=== PATIENT | male | born 1955 | race Two or more races ===

== ENCOUNTER 2018-06-28 07:06 | Day surgery (SDC) | payer OTHER ==
[~2018-06-28] VITALS: Ht 175.3 cm; Wt 79.4 kg
[2018-06-28] VITALS (11 sets, daily range): BP systolic 118–135; BP diastolic 68–84
[~2018-06-28 07:06] MED LIST: AMLODIPINE BESY10 MG ORAL; CRESTOR10 M2 ORAL; LOSARTAN POTASS50 MG ORAL; ceFAZolin 1gm IVPB IVPB ONE; celeBREX 200mg Cap **SURGERY PATIENTS ONLY ORAL ONE; oxyCONTIN 20mg tab ORAL ONE
[2018-06-28] MEDS ORDERED: Morphine Sulfate PF 0 ML ONE (08:04)
[2018-06-28] MEDS ORDERED: Kenalog-40 1ml Vial ONE (08:04)
[2018-06-28] MEDS ORDERED: Bupivacaine w/Epi 0.25% 30ml Vial INJ ONE (08:04)
[2018-06-28] MEDS ORDERED: Ketorolac 30mg Inj ONE ×2 (08:04→08:52)
[2018-06-28] MEDS ORDERED: Lidocaine 1% MPF 10mg/ml 5ml ONE (08:14)
[2018-06-28] MEDS ORDERED: Midazolam 2mg/2ml Inj ONE (08:14)
[2018-06-28] MEDS ORDERED: fentaNYL 100 mcg/2 mL IV ONE (08:14)
[2018-06-28] MEDS ORDERED: Propofol 200mg/20ml IV ONE (08:14)
[2018-06-28] MEDS ORDERED: EPINEPHrine 1mg/1ml Amp ONE (08:16)
[2018-06-28] MEDS ORDERED: LR 1000ml 1,000 ML IVLG SCH (08:25)
--- NOTE | 2018-06-28 08:25 | Anethesia Preoperative Eval ---
Anesthesia Pre-op PMH/ROS General Date of Evaluation: Jun 28, 2018 Anesthesiologist: Julien ASA Score: ASA 2 Mallampati Score Class I : Soft palate, uvula, fauces, pillars visible Class II: Soft palate, uvula, fauces visible Class III: Soft palate, base of uvula visible Class IV: Only hard plate visible Mallampati Classification: Class II Surgeon: Oj Diagnosis: LEft shoulder impingement Surgical Procedure: Left shouldeer arthroscopy Anesthesia History: none Family History: no anesthesia problems Allergies: Coded Allergies: No Known Allergies (Unverified , 06/28/18) Medications: see eMAR Patient NPO?: Yes NPO Date: Jun 27, 2018 NPO Time: 22:00 Past Medical History Cardiovascular: Reports: HTN, other - HLD; Denies: CAD, SC, valve dz, arrhythmia Pulmonary: Denies: asthma, COPD, LAXMI, other Gastrointestinal/Genitourinary: Denies: GERD, CRI, ESRD, other Neurologic/Psychiatric: Denies: dementia, CVA, depression/anxiety, TIA, other Endocrine: Denies: DM, hypothyroidism, steroids, other HEENT: Denies: cataract (L), cataract (R), glaucoma, [place] (L), [place] (R), other Hematology/Immune: Denies: anemia, DVT, bleeding disorder, other Musculoskeletal/Integumentary: Denies: OA, RA, DJD, DDD, edema, other PSxH Narrative: Denies Anesthesia Pre-op Phys. Exam Physician Exam Last Vital Signs Date Time Temp Pulse Resp B/P (MAP) Pulse Ox O2 Delivery O2 Flow Rate FiO2 06/28/18 07:51 98.3 71 18 135/71 98 Room Air Constitutional: NAD Cardiovascular: RRR Respiratory: CTA Airway Exam Mallampati Score: Class II MO: full ROM: full Dentures: upper, lower Anesthesia Pre-op A/P Labs see chart Studies Pre-op Studies: EKG - sr Risk Assessment & Plan Assessment: ASA II Plan: GA with interscalene nerve block Status Change Before Surgery: No Pre-Antibiotics Drug: Ancef 1g Given Within 1 Hr of Incision: Yes Heather Carlton MD Jun 28, 2018 08:25
[2018-06-28] MEDS ORDERED: Hydromorphone 0.5mg/0.5ml inj IVP PRN (08:30)
[2018-06-28] MEDS ORDERED: DiphenhydrAMINE 50mg/ml Inj IVP PRN (08:30)
[2018-06-28] MEDS ORDERED: fentaNYL 100 mcg/2 mL IV PRN (08:30)
[2018-06-28] MEDS ORDERED: LR 1000ml ONE (08:30)
[2018-06-28] MEDS ORDERED: Ketorolac 30mg Inj IV PRN (08:30)
[2018-06-28] MEDS ORDERED: LORazepam Inj 2mg/ml 1ml IV PRN (08:30)
[2018-06-28] MEDS ORDERED: Dexamethasone 4mg/ml vial ONE (08:52)
--- NOTE | 2018-06-28 09:40 | Immediate Post-Op Evaluation ---
Immediate Post-Op Evalulation Immediate Post-Op Evalulation Procedure: Left shoulder arthroscopy Date of Evaluation: Jun 28, 2018 Time of Evaluation: 09:41 IV Fluids: 900 Blood Products: 0 Estimated Blood Loss: min Urinary Output: 0 Blood Pressure Systolic: 120 Blood Pressure Diastolic: 84 Pulse Rate: 80 Respiratory Rate: 17 O2 Sat by Pulse Oximetry: 100 Temperature (Fahrenheit): 97.7 Pain Score (1-10): 0 Nausea: No Vomiting: No Complications 0 Patient Status: awake, reacts, patent Hydration Status: adequate Drug: Ancef 1g Given Within 1 Hr of Incision: Yes Time Given: 08:35 Heather Carlton MD Jun 28, 2018 09:40
--- NOTE | 2018-06-28 09:41 | 48 Hour Post Anesthesia Eval ---
Post Anesthesia Evaluation Procedure: Left shoulder arthroscopy Date of Evaluation: Jun 28, 2018 Airway: patent Nausea: No Vomiting: No Pain Intensity: 0 Hydration Status: adequate Cardiopulmonary Status: at baseline Mental Status/LOC: patient returned to baseline Post-Anesthesia Complications: 0 Follow-up care needed: ready to discharge Heather Carlton MD Jun 28, 2018 09:41
[2018-06-28] MEDS ORDERED: HYDROmorphone 1mg/ml Carpuject SUBQ PRN (14:01)
[2018-06-28] MEDS ORDERED: Tylenol #3 tab (300mg/30mg) ORAL PRN (14:01)
[2018-06-28] MEDS ORDERED: D5 1/2NS 1,000 ML IV SCH (14:01)
[2018-06-28] MEDS ORDERED: Norco 5mg/325mg tab ORAL PRN (14:01)
--- NOTE | 2018-06-28 15:17 | Pre-Procedure Note/Attestation ---
Pre-Procedure Note/Attestation Complete Prior to Procedure Planned Procedure: left Procedure Narrative: shoulder arthroscopy, sad Indications for Procedure Pre-Operative Diagnosis: left shoulder impingement Attestation I attest that I discussed the nature of the procedure; its benefits; risks and complications; and alternatives (and the risks and benefits of such alternatives ), prior to the procedure, with the patient (or the patient's legal technical sales representatives). I attest that, if there was a reasonable possibility of needing a blood transfusion, the patient (or the patient's legal technical sales representatives) was given the [facility] standardized written summary, pursuant to the [place] Blood Safety Act ([place] Health and Safety Code # 1645, as amended). I attest that I re-evaluated the patient just prior to the surgery and that there has been no change in the patient's H&P, except as documented below: Kashif Mcwilliams MD Jun 28, 2018 15:17
--- NOTE | 2018-06-28 15:17 | Operative Note - PDOC ---
Operative Note Operative Note Pre-op Diagnosis: left shoulder impingement Procedure: see op report Post-op Diagnosis: same as pre-op plus Operative Findings: consistent w/pre-op dx studies Anesthesia: general Specimen: none Complications: none Condition: stable Estimated Blood Loss: none Implant(s) used?: No Kashif Mcwilliams MD Jun 28, 2018 15:17
--- NOTE | 2018-06-28 17:02 | Operative Note - Dictated ---
DATE OF OPERATION: 06/28/2018 SURGEON: Kashif Mcwilliams M.D. PREOPERATIVE DIAGNOSIS: Left shoulder traumatic impingement syndrome. POSTOPERATIVE DIAGNOSES: 1. Left shoulder biceps tendinitis. 2. Left shoulder impingement syndrome. PROCEDURES: 1. Left shoulder diagnostic arthroscopy. 2. Left shoulder subacromial decompression bursectomy. SURGEON: Kashif Mcwilliams M.D. ANESTHESIA: Interscalene with general. INDICATION: The patient is a pleasant gentleman, who has had progressive left shoulder pain. The patient had continued pain despite conservative treatment and elected to undergo left shoulder arthroscopy with subacromial decompression bursectomy. Risks, limitations, expectations, and complications of the procedure were discussed in detail. All questions addressed. DESCRIPTION OF PROCEDURE: After informed consent was obtained, the patient was brought to the operating room. The patient was placed under interscalene general anesthesia. The patient was carefully placed in the beach chair position. Left shoulder was prepped and draped in a sterile manner. Time-out was performed. Posterior lateral skin incision was then made. Trocar was introduced into the glenohumeral joint. Systematic tour of the shoulder was performed. There is no significant chondral damage. The anterior labrum appeared to be intact along with the superior labrum. The biceps tendon was intact. There was some erythema along the bicipital tuberosity area. The undersurface of the rotator cuff was intact. At this point, the camera was repositioned in the subacromial space and complete bursectomy was performed. The undersurface of the acromion was identified. Acromioplasty was started from lateral to medial and completed from posterior to anterior. Once that was completed, the instruments were removed. Portal sites were closed with 3-0 Monocryl sutures. The patient was awoken and taken to recovery room with stable vital signs. ESTIMATED BLOOD LOSS: None. COMPLICATIONS: None. SPECIMENS: None. IMPLANTS: None. Kashif Mcwilliams M.D. DR: JASON JOB#: [id number] CC:
== END 2018-06-28 13:30 | disposition home or self-care (01) ==
LOC: SUR 07:06
DX: M25.812 Other specified joint disorders, left shoulder (principal); M75.22 Bicipital tendinitis, left shoulder; I10 Essential (primary) hypertension; E78.5 Hyperlipidemia, unspecified
CPT/HCPCS: 29823; J0171; J0690; J1100; J1885; J2250; J2405; J2704; J3010; J3301; 94003; 94150

== ENCOUNTER 2019-11-21 06:24 | Observation (INO) | payer OTHER ==
[~2019-11-21] VITALS: Ht 177.8 cm; Wt 81.6 kg
[2019-11-21] VITALS (14 sets, daily range): BP systolic 104–156; BP diastolic 69–93
[~2019-11-21 06:24] MED LIST changes: -ceFAZolin 1gm IVPB IVPB ONE; -celeBREX 200mg Cap **SURGERY PATIENTS ONLY ORAL ONE; -oxyCONTIN 20mg tab ORAL ONE
[2019-11-21] MEDS ORDERED: Chloraseptic Spray 20mL Bottle ORAL PRN (06:45)
[2019-11-21] MEDS ORDERED: DiphenhydrAMINE 25mg Tab ORAL PRN (06:45)
[2019-11-21] MEDS ORDERED: Dexamethasone 20mg/5ml IVP ONE (07:00)
[2019-11-21] MEDS ORDERED: ceFAZolin sod 1 GM in NS 55 ML IVPB ONE (07:00)
[2019-11-21] MEDS ORDERED: HYDROcodone/Acetamin 10/325 tab ORAL PRN ×2 (07:30→07:45)
[2019-11-21] MEDS ORDERED: HYDROmorphone 1mg/ml Carpuject IVP PRN (07:30)
--- NOTE | 2019-11-21 08:54 | Pre-Procedure Note/Attestation ---
Pre-Procedure Note/Attestation Complete Prior to Procedure Planned Procedure: not applicable Procedure Narrative: C5-C6 ACDF, plate possible C6-C7 Indications for Procedure Pre-Operative Diagnosis: trauma, HNP, radiculopathy, pain, neurological deficit Attestation I attest that I discussed the nature of the procedure; its benefits; risks and complications; and alternatives (and the risks and benefits of such alternatives ), prior to the procedure, with the patient (or the patient's legal cash application representative). I attest that, if there was a reasonable possibility of needing a blood transfusion, the patient (or the patient's legal cash application representative) was given the [place] [facility] standardized written summary, pursuant to the [place] Blood Safety Act ([place] Health and Safety Code # 1645, as amended). I attest that I re-evaluated the patient just prior to the surgery and that there has been no change in the patient's H&P, except as documented below: Adams Lee MD Nov 21, 2019 08:54
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
[2019-11-21] MEDS: LR 1000ml 1,000 ML IVLG SCH ×2 (09:02→13:47)
--- NOTE | 2019-11-21 09:02 | Anethesia Preoperative Eval ---
Anesthesia Pre-op PMH/ROS General Date of Evaluation: Nov 21, 2019 Time of Evaluation: 09:32 Anesthesiologist: Avelina ASA Score: ASA 2 Mallampati Score Class I : Soft palate, uvula, fauces, pillars visible Class II: Soft palate, uvula, fauces visible Class III: Soft palate, base of uvula visible Class IV: Only hard plate visible Mallampati Classification: Class II Surgeon: Rosa Diagnosis: Neck Pain Surgical Procedure: ACDF C5-6 Anesthesia History: none Social History: current smoker Family History: no anesthesia problems Allergies: Coded Allergies: No Known Allergies (Unverified , 11/21/19) Medications: see eMAR Patient NPO?: Yes NPO Date: Nov 20, 2019 NPO Time: 2300 Past Medical History Cardiovascular: Reports: HTN, other - HL Pulmonary: Reports: COPD PSxH Narrative: Shoulder SX Anesthesia Pre-op Phys. Exam Physician Exam Last Vital Signs Date Time Temp Pulse Resp B/P (MAP) Pulse Ox O2 Delivery O2 Flow Rate FiO2 11/21/19 07:02 98.3 68 20 156/93 (114) 98 11/21/19 06:51 Room Air Constitutional: NAD Neurologic: CN 2-12 intact Cardiovascular: RRR Respiratory: CTA Gastrointestinal: S/NT/ND Airway Exam Mallampati Score: Class II MO: full ROM: limited Teeth: missing Dentures: upper, lower Anesthesia Pre-op A/P Risk Assessment & Plan Assessment: ASA 3 Status Change Before Surgery: No Pre-Antibiotics Dru Grams Ancef IV Given Within 1 Hr of Incision: Yes Time Given: 09:51 Fly Quan MD Nov 21, 2019 09:02
[2019-11-21] MEDS ORDERED: oxyCODONE HCL/Acetaminophen 5/325mg ORAL PRN (09:15)
[2019-11-21] MEDS ORDERED: Acetaminophen (Non formulary) 100 ML IV ONE (09:15)
[2019-11-21] MEDS ORDERED: Meperidine 25mg/0.5ml Inj (FOR RIGORS ONLY) IV PRN (09:15)
[2019-11-21] MEDS ORDERED: HYDROcodone/Acetamin 7.5/325 tab ORAL PRN (09:15)
[2019-11-21] MEDS ORDERED: Midazolam 2mg/2ml Inj IVP PRN (09:15)
[2019-11-21] MEDS ORDERED: fentaNYL 100 mcg/2 mL IV PRN (09:15)
[2019-11-21] MEDS ORDERED: Atropine Sulfate 0.4mg/ml inj IVP PRN (09:15)
[2019-11-21] MEDS ORDERED: Ketorolac 30mg Inj IV PRN ×2 (09:15)
[2019-11-21] MEDS ORDERED: Metoclopramide 10mg/2ml Inj IVP PRN (09:15)
[2019-11-21] MEDS ORDERED: DiphenhydrAMINE 50mg/ml Inj IVP PRN (09:15)
[2019-11-21] MEDS ORDERED: LORazepam Inj 2mg/ml 1ml IV PRN (09:15)
[2019-11-21] MEDS ORDERED: HYDROcodone/Acetamin 5/325 tab ORAL PRN (09:15)
[2019-11-21] MEDS ORDERED: Rocuronium Bromide 50mg/5ml Inj IV ONE (09:25)
[2019-11-21] MEDS ORDERED: NS Irrig 1000ml ONE (09:30)
[2019-11-21] MEDS ORDERED: Sterile Water Irrig 1000ml IRRIG ONE (09:30)
[2019-11-21] MEDS ORDERED: Neostigmine 1mg/ml 10ml Inj ONE (09:30)
[2019-11-21] MEDS ORDERED: Propofol 1,000mg/ 100ml btl IV ONE (09:30)
[2019-11-21] MEDS ORDERED: LR 1000ml ONE (09:30)
[2019-11-21] MEDS ORDERED: Lidocaine 1% Plain 30 ml INJ ONE (09:32)
[2019-11-21] MEDS ORDERED: Lidocaine 1% MPF 10mg/ml 5ml ONE (09:33)
[2019-11-21] MEDS ORDERED: fentaNYL 100 mcg/2 mL IV ONE (09:33)
[2019-11-21] MEDS ORDERED: Dexamethasone 4mg/ml vial ONE (09:33)
[2019-11-21] MEDS ORDERED: Sodium Chloride 10ml vial INJ ONE (09:33)
[2019-11-21] MEDS ORDERED: Gelfoam Size TOPIC ONE (09:35)
[2019-11-21] MEDS ORDERED: Thrombin 5000 units TOPIC ONE (09:35)
[2019-11-21] MEDS ORDERED: Bacitracin 50000 Units Vial ONE (09:36)
--- NOTE | 2019-11-21 10:24 | Immediate Post-Op Evaluation ---
Immediate Post-Op Evalulation Immediate Post-Op Evalulation Procedure: ACDF C5-6 Date of Evaluation: Nov 21, 2019 Time of Evaluation: 12:20 IV Fluids: 1000 LR Blood Products: 0 Estimated Blood Loss: 75 Urinary Output: 0 Blood Pressure Systolic: 106 Blood Pressure Diastolic: 74 Pulse Rate: 84 Respiratory Rate: 16 O2 Sat by Pulse Oximetry: 100 Temperature (Fahrenheit): 97 Pain Score (1-10): 2 Nausea: No Vomiting: No Complications 0 Patient Status: awake, reacts, patent, extubated, none Hydration Status: adequate Dru Grams Ancef IV Given Within 1 Hr of Incision: Yes Time Given: 07:51 Fly Quan MD Nov 21, 2019 10:24
--- NOTE | 2019-11-21 10:25 | 48 Hour Post Anesthesia Eval ---
Post Anesthesia Evaluation Procedure: ACDF C5-6 Date of Evaluation: Nov 21, 2019 Time of Evaluation: 14:23 Blood Pressure Systolic: 134 0: 78 Pulse Rate: 81 Respiratory Rate: 18 Temperature (Fahrenheit): 98 O2 Sat by Pulse Oximetry: 99 Airway: patent Nausea: No Vomiting: No Pain Intensity: 2 Hydration Status: adequate Cardiopulmonary Status: Stable Mental Status/LOC: patient returned to baseline Follow-up Care/Observations: 0 Post-Anesthesia Complications: 0 Follow-up care needed: ready to discharge Fly Quan MD Nov 21, 2019 10:25
[2019-11-21] MEDS ORDERED: NS Irrig 1000ml IRRIG ONE (11:06)
[2019-11-21] MEDS ORDERED: Glycopyrrolate 0.2mg/ml 1ml Vial ONE (11:29)
[2019-11-21] MEDS ORDERED: Tamsulosin 0.4mg cap ORAL SCH (11:30)
[2019-11-21] MEDS ORDERED: Naloxone 0.4mg/ml Inj ONE (11:39)
[2019-11-21] MEDS ORDERED: D5 1/2NS 1,000 ML IV SCH (11:45)
[2019-11-21] MEDS ORDERED: Naloxone 0.4mg/ml Inj IVP PRN (11:45)
--- NOTE | 2019-11-21 11:45 | Brief Operative Note ---
Immediate Post Operative Note Operative Note Pre-op Diagnosis: trauma, HNP, radiculopathy, pain, neurological deficit Procedure: ACDF C5-C6 plate, ssep xray, magniication Post-op Diagnosis: same as pre-op Findings: consistent w/pre-op dx studies Surgeon: Rosa PATIÑO Bed Placement Coordinator: Afshan ROWLEY Anesthesiologist: Avelina PATIÑO Specimen: yes Complications: none Condition: stable Fluids: anesthesia Estimated Blood Loss: minimal Drains: none Implant(s) used?: Yes Adams Lee MD Nov 21, 2019 11:45
[2019-11-21] MEDS: Hydromorphone 0.5mg/0.5ml inj IVP PRN ×2 (12:25→12:56)
[2019-11-21] MEDS ORDERED: Losartan 50mg tab ORAL SCH (13:00)
--- NOTE | 2019-11-21 13:30 | NUR ---
NURSE NOTES: Patient arrived on unit via hospital bed. Stable. Denies pain or SOB. Patient oriented to room, call light, and unit. Patient instructed to use call light for assistance, verbalized understanding. Surgical dressing c/d/i. Patient is in bed in locked and lowest position with call light within reach. All needs met at this time. Will continue to monitor.
--- NOTE | 2019-11-21 14:00 | NUR ---
CASE MANAGEMENT:REVIEW 11/21/19 64 YR OLD MALE HERE FOR ELECTIVE SURGERY SI: RADICULOPATHY, PAIN AND NEUROLOGICAL DEFICIT 98.3 68 20 156/93 98% ON RA IS: TO SURGERY FOR: ACDF C5-C6 IV DECDRON X1 IV ANCEF Q8HRS IVF@125/HR COZAAR PO BID FLOMAX PO QD PEPCID PO BID : TO MED/SURG 3 EAST INTERQUAL CRITERIA MET
--- NOTE | 2019-11-21 14:36 | NUR ---
NURSE NOTES: Patient tolerated clear liquids then was advanced to full liquid diet as tolerated. Patient tolerated full liquid diet. Will advance to regular diet and monitor.
--- NOTE | 2019-11-21 15:14 | NUR ---
NURSE NOTES: Patient urinated and ambulated with RN without incident. Patient made aware of discharge. Patient's car driver Anisha Ascencio made aware of discharge.
[2019-11-21] MEDS ORDERED: ceFAZolin sod 1 GM in D5W 55 ML IV SCH (15:30)
--- NOTE | 2019-11-21 15:38 | NUR ---
NURSE NOTES: Patient discharged home as ordered. Stable. Denies pain or SOB. patient is able to verbalize needs and ambulate independently. Patient is voiding and eating well without assistance. Patient has all medication at home. THorough discharge instructions given by RN, patient verbalized understanding. Patient assisted into private vehicle by RN without incident. No IV access.
--- NOTE | 2019-11-21 16:14 | Diagnostic Imaging Report ---
Indication: Intraoperative imaging COMPARISON: None FINDINGS: Multiple fluoroscopic images were obtained intraoperatively. Anterior discectomy and fusion demonstrated at C5-6 with anterior compression plate noted. Fluoroscopic time 11.3 seconds. IMPRESSION: Intraoperative imaging as described above
--- NOTE | 2019-11-21 19:30 | Operative Note - Dictated ---
DATE OF OPERATION: 11/20/2019 SURGEON: Adams Lee M.D. PLANT CARE WORKER: HALLEY Kline. ANESTHESIOLOGIST: Fly Quan M.D. ANESTHESIA: General with intubation. ESTIMATED BLOOD LOSS: Minimal. DRAINS: None. COMPLICATIONS: None. POSTOP CONDITION: Good/stable. SPECIMEN: Disc fragment C5-C6 to pathology. 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 Pain. 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 Pain. PROCEDURE: 1. Anterior cervical diskectomy with fusion C5-C6. 2. Anterior internal plate fixation C5, C6. 3. Placement of osteopromotive material C5-C6. 4. Placement of interbody titanium device C5-C6. 5. SSEP monitoring. 6. High-powered microscopic dissection. 7. Intraoperative x-rays interpreted by surgeon. PROCEDURE IN DETAIL: The patient was brought to the operating room and in the supine position, general anesthesia with intubation was induced. IV antibiotics, IV Decadron were administered 30 minutes prior to the incision time. A sterile spinal needle within its sheath not penetrating the skin was taped to the right lateral aspect of the neck and a cross-table imaging was obtained interpreted by surgeon for determination of incision placement. Under sterile marking conditions, the surgical incision site on the left lateral aspect of the neck was marked. The marker as noted above was removed. Anterior cervical spine was sterilely prepped and draped free in usual sterile fashion. Transverse left incision at the appropriate interval was sharply placed through dermis and epidermis. Electrocautery dissection was carried through the subcutaneous tissue to the level of the platysmas muscle that was identified, isolated, and transected in line with the incision. Blunt dissection was carried medial to the left sternocleidomastoid muscle and the carotid sheath through the deep cervical and pretracheal fascia to the midline between the right and left longus colli muscles. A spinal needle bent at 90 degree angle so as to avoid penetration greater than 3 mm in depth into the disk was placed under high-power magnification. Cross-table imaging was obtained interpreted by surgeon demonstrating C5-C6 as the correct interval. Position of the needle was marked. Needle removed. Longus colli muscles were subperiosteally elevated 3 mm in the medial lateral extent. Retractor placed. Under high-power magnification with the microscope utilization, annulotomy removed ____ anterior to osteophyte was performed. Diskectomy to the posterior longitudinal ligament. Resection of the posterior longitudinal ligament with decompression of bilateral neuroforamen. Interpositional grafting with appropriately dimension titanium ____ graft was packed with osteopromotive material and local autograft. Tamped into position. Fluoroscopic imaging demonstrated excellent alignment and position. SSEP monitoring stable at all times. Anterior plate of the appropriate dimensions was internally 6 in a compressive manner, bilateral screws C5, bilateral screws C6 locked into position. Fluoroscopic imaging demonstrated excellent alignment and position. The patient is stable. Wound was copiously irrigated with antibiotic-containing saline. Exploration did not reveal any obvious excoriation or laceration of vital structures. FloSeal applied followed with reapproximation of the platysmas muscle followed by subcutaneous take surgery reapproximation of dermis and epidermis. Surgical strips applied followed by sterile bandage was maintained in place with tape. Adams Lee M.D. DR: LISA JOB#: [id number] CC:
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
== END 2019-11-21 15:35 | disposition home or self-care (01) ==
LOC: SUR 06:24 → 3E 12:06 → UNDODISOB 15:35
DX: M50.122 Cervical disc disorder at C5-C6 level with radiculopathy (principal); M48.02 Spinal stenosis, cervical region; G89.18 Other acute postprocedural pain; J44.9 Chronic obstructive pulmonary disease, unspecified; I10 Essential (primary) hypertension; E78.5 Hyperlipidemia, unspecified; E04.1 Nontoxic single thyroid nodule; F17.210 Nicotine dependence, cigarettes, uncomplicated; Z79.899 Other long term (current) drug therapy
CPT/HCPCS: 20931; 20936; 22551; 22845; 22853; 36415; 72040; 76000; 86850; 86900; 86901; C1713; G0378; J0131; J0690; J1100; J1170; J2001; J2250; J2310; J2405; J2704; J2710; J3010; J7120; 94003; 94150

== ENCOUNTER 2019-11-22 00:12 | Emergency (ER) | payer OTHER ==
[~2019-11-22] VITALS: Ht 177.8 cm; Wt 81.6 kg
[2019-11-22 00:25] VITALS: BP 155/87
--- NOTE | 2019-11-22 00:25 | NUR ---
ED Nurse Note: Pt ambulated into ed from home CO inability to pass gas or have BM since surgery earlier today. VSS no ss of distress noted. Pt aao x 4, steady gait. ERMD at bedside
--- NOTE | 2019-11-22 00:32 | NUR ---
ED Nurse Note: pt given 4oz of water, tolerated well. PT began burping intermittently, ermd aware.
--- NOTE | 2019-11-22 00:36 | Emergency Room Report ---
History of Present Illness General Chief Complaint: General Complaint Source: Patient Present Illness HPI this is a 64 yo male with recent cervical disectomy done less than 24 hours ago. he presents with c/o not passing gas or burping yet. he has no pain, fever , n/v/d. also c/o dry mouth. pain is well controlled. no other complaints. Allergies: Coded Allergies: No Known Allergies (Unverified , 11/21/19) COVID-19 Screening Contact w/high risk pt: No Recent Travel to affected area: No Experienced COVID-19 symptoms?: No Patient History Past Medical History: see triage record, old chart reviewed Past Surgical History: other Pertinent Family History: none Social History: Denies: smoking Immunizations: other Reviewed Nursing Documentation: PMH: Agreed; PSxH: Agreed Nursing Documentation-PMH Hx Cardiac Problems: Yes Hx Hypertension: Yes Hx Cancer: No Hx Gastrointestinal Problems: No Hx Neurological Problems: No Review of Systems Eye: Denies: eye pain, blurred vision ENT: Denies: ear pain, nose congestion, throat swelling Respiratory: Denies: cough, shortness of breath Cardiovascular: Denies: chest pain, palpitations Gastrointestinal: Denies: abdominal pain, diarrhea, nausea, vomiting Musculoskeletal: Denies: back pain, joint pain Skin: Denies: rash Neurological: Denies: headache, numbness Endocrine: Denies: increased thirst, increased urine Hematologic/Lymphatic: Denies: easy bruising All Other Systems: negative except mentioned in HPI Physical Exam Vital Signs Date Time Temp Pulse Resp B/P (MAP) Pulse Ox O2 Delivery O2 Flow Rate FiO2 11/22/19 00:15 98.2 111 20 155/87 (109) 95 Room Air vitals with tachycardia Sp02 EP Interpretation: reviewed, normal General Appearance: well appearing, no apparent distress, alert Head: normocephalic, atraumatic Eyes: bilateral eye PERRL, bilateral eye EOMI ENT: hearing grossly normal, normal pharynx Neck: full range of motion, supple, no meningismus Respiratory: chest non-tender, lungs clear, normal breath sounds Cardiovascular #1: regular rate, rhythm, no murmur Gastrointestinal: non tender, no mass, no organomegaly, no bruit, non-distended , decreased bowel sounds Musculoskeletal: back normal, normal range of motion, gait/station normal Psychiatric: mood/affect normal Medical Decision Making Diagnostic Impression: Primary Impression: Postoperative ileus ER Course Pt with sx c/w post op ileus. no e/o obstruction. no e/o acute abd. he is tolerating PO intake here. actually now burping after drinking fluids in ER. pt reassured. Last Vital Signs Date Time Temp Pulse Resp B/P (MAP) Pulse Ox O2 Delivery O2 Flow Rate FiO2 11/22/19 00:15 98.2 111 20 155/87 (109) 95 Room Air Status: improved Disposition: HOME, SELF-CARE Condition: Stable Additional Instructions: Follow up with your doctor in 2-3 days if not better. Return if worse. Damaso Figueroa MD Nov 22, 2019 00:36
[2019-11-22 00:44] VITALS: BP 145/85
--- NOTE | 2019-11-22 00:44 | NUR ---
ER DISCHARGE NOTE: Patient is cleared to be discharged home per ERMD, pt is aox4, on room air, with stable vital signs. pt was given dc instructions, pt was able to verbalize understanding, pt id band removed. pt is able to ambulate with steady gait. pt took all belongings.
== END 2019-11-22 00:44 | disposition home or self-care (01) ==
LOC: EMR 00:34
DX: K56.7 Ileus, unspecified (principal); I10 Essential (primary) hypertension
CPT/HCPCS: 99281